=== PATIENT | female | born 1965 ===

== ENCOUNTER 2019-07-17 09:53 | Day surgery (SDC) | payer OTHER, SELFPAY ==
[2019-07-15 13:44] VITALS: BMI 24.1
[2019-07-17] VITALS (13 sets, daily range): BP systolic 81–133; BP diastolic 47–78; PULSE 72–91; RESP 11–77; TEMP 36.1–37; O2SAT 16–100; BMI 22.6
[2019-07-17] MEDS: LACTATED RINGERS 1,000 ML 42 ML IV ×2 (11:00→13:49)
--- NOTE | 2019-07-17 12:10 | SUR.PREOP ---
Patient resting quietly in stretcher. Awaiting procedure start.
[2019-07-17] MEDS: fentaNYL 100 MCG/2 ML INJ IV (12:23)
--- NOTE | 2019-07-17 12:25 | P.OP_ITS ---
Operative Date/Time/Diagnoses Date of procedure: 07/17/19 Time of procedure: 14:19 Pre-op diagnosis: Full-thickness rotator cuff tear left shoulder Post-op diagnosis: same Procedure & Clinicians Procedure: Arthroscopic subacromial decompression and rotator cuff repair left shoulder. Same procedure as scheduled: Yes Indications: The patient presents today for left shoulder arthroscopic rotator cuff repair. Other procedures such as biceps tenodesis may be performed depending on intraoperative findings. The patient has failed a long period of conservative treatment after a work injury. The nature of the procedure including the risks and benefits, alternatives, postoperative course and expected outcome were discussed and all questions answered. Consent was obtained. Operative site confirmed and marked. Surgeon: Kody Restrepo Flavoring Machine Operator: Franco Adrian Anesthesia Type: General, Peripheral nerve block and Local Operative Notes Findings: Examination under anesthesia was unremarkable. Arthroscopic evaluation of the glenohumeral joint was unremarkable except for visualization of the full-thickness supraspinatus tear. The biceps tendon was intact with no evidence of any tearing even when retracted in the joint. The labrum was intact. No evidence of any significant chondromalacia. The other portions of the rotator cuff were intact with no partial thickness tearing. Evaluation of subacromial space revealed fairly minimal bursitis but there was a small anterior acromial spur. A standard bursectomy and subacromial decompression was performed. The rotator cuff tear was just about 1 cm anterior to posterior and involved the very anterior aspect of supraspinatus tendon. This was an L-shaped tear with the posterior limb. The tear was repaired with a single interrupted FiberWire suture posteriorly. The cuff was then repaired down to the tuberosity utilizing a inverted mattress fiber tape suture and Arthrex SwiveLock anchor. A complete tension-free repair was obtained. There was excellent purchase of the anchor into the bone. The subacromial space was well decompressed at the end the procedure. The AC joint was not prominent into the joint and no distal clavicle excision was performed. Closure Type: primary Specimen(s): none sent Prosthetic devices, grafts, tissues, transplants, or devices: Arthrex swivel lock anchors and FiberTape suture. Applied: implant(s) Procedure in detail: The patient was taken the operative suite and placed under anesthesia and given prophylactic antibodies prior to surgery. The patient was then positioned in the lateral decubitus position on a beanbag and with an axillary roll. The arm was suspended with 10 pounds of weight. The acromion and coracoid as well as the expected portal sites were all marked. The shoulder was then injected with 20 mL of 1% lidocaine with epinephrine. The arm was then prepped and draped in usual sterile fashion. The joint was then filled with 20 mL of saline through the proposed posterior portal site. The posterior portal was then established and the scope placed bluntly into the glenohumeral joint. An anterior portal was then established from an outside in technique with a spinal needle. The glenohumeral joint was then inspected (see findings above). The scope was then switched to the subacromial space. A standard bursectomy and anterior/lateral chondroplasty was performed with a shaver and bur. The subacromial space was well decompressed. The rotator cuff tear was approximately 1 cm anterior to posterior and L shaped in configuration. The tear was quite mobile. The tuberosity was abraded to a bleeding surface with a bur. The cuff was 1st repaired with an interrupted [id number] FiberWire suture which brought the tear almost back to the tuberosity. An inverted mattress fiber tape suture was then placed with 1 limb in the anterior portion of the tear and 1 limb in the posterior portion of the tear. This was then secured to the tuberosity with an Arthrex SwiveLock anchor. A complete tension-free watertight repair was obtained. The arthroscopy was then completed and the shoulder drained. The portal sites were closed with interrupted 3-0 nylon suture. Subacromial space was filled with 20 mL of 0.5% ropivacaine and 4 of morphine. Sterile gauze dressings were then applied. The shoulder was placed into a sling. The patient tolerated the procedure well and was returned recovery room in good condition. Complications: none Post-operative Condition: stable Disposition: same day surgery Plan for aftercare: Patient will be discharged to home with standard rotator cuff repair precautions. Clinic follow-up in 2 weeks.
--- NOTE | 2019-07-17 12:25 | PM.PREOP ---
Pre-operative Note Interval Note History & Physical reviewed/Exam performed by Physician: Yes Changes to H&P: No
--- NOTE | 2019-07-17 12:26 | SUR.PREOP ---
Block start time 1230 [] . Monitoring initiated and maintained throughout procedure. Oxygen and medications given per anesthesiologist instructions. Patient remained stable throughout procedure, no adverse reactions noted. Block end time [1240.
[2019-07-17] MEDS: CEFAZOLIN 2 GM/100 ML FROZ.PIGGY IV (12:45)
--- NOTE | 2019-07-17 13:15 | SUR.OPER ---
Lateral on padded OR bed with garza bag positioner, head on pillow, gel axillary roll in place, bottom leg bent with gel pad under knee to foot, upper leg straight and supported with pillows. Operative arm secured in shoulder positioning suspension device. non-operative arm secured on padded arm board. Safety belt at hip, tape over blanket securing lower legs.
[2019-07-17] MEDS: SODIUM CHLORIDE IRRIG SOLUTION 3,000 ML, EPINEPHrine 1 MG IRR (13:21)
[2019-07-17] MEDS: LIDOCAINE 1% W/EPI 20 ML INJ (13:24)
[2019-07-17] MEDS: BUPIVACAINE 0.5% W/ EPI (PF) 10 ML VIAL INJ (14:03)
--- NOTE | 2019-07-17 14:47 | SUR.PHASEI ---
1440 Dr. Cameron checked on pt; she continues to sleep, resp even and regular, no evidence of discomfort or nausea. Maintaining adequate sat on RA
--- NOTE | 2019-07-17 15:11 | SUR.PHASEI ---
Arouses easily to voice, denies pain, taking ice chips, very drowsy
--- NOTE | 2019-07-17 15:40 | SUR.PHASEII ---
arouses easily to voice, denies pain/nausea; Declines the need to start food and pain med. waiting for spouse to return then will prepare to discharge.
== END 2019-07-17 16:16 | disposition home or self-care (01) ==
PROVIDERS: Visit Provider Orthopaedic Surgery
PROC: (CPT 29827; principal; 2019-07-17 12:30)
DX: M75.121 Complete rotator cuff tear or rupture of right shoulder, not specified as traumatic (principal); M75.51 Bursitis of right shoulder; I10 Essential (primary) hypertension; X50.0XXA Overexertion from strenuous movement or load, initial encounter
CPT/HCPCS: 29827; 29826; 64450; J0171; J0690; J1100; J2405; J2704; J3010